=== PATIENT | male | born 1980 | race Hispanic/Latino ===

== ENCOUNTER 2016-07-22 10:37 | Emergency (ER) | payer BC ==
[2016-07-22 10:43] VITALS: BP 128/80; PULSE 67; RESP 20; TEMP 97.8; O2SAT 97
--- NOTE | 2016-07-22 10:46 | ED PDOC ---
HPI: Back Time Seen by Provider: 07/22/16 10:46 Chief Complaint (Provider): back pain History Per: Patient Additional Complaint(s): Patient states he was playing with his daughter at home when he accidentally tripped injuring right side of lower back and back of his right thigh. He has had persistent muscle spasms to posterior right leg and right lower back since this occurred at 7:30 this morning. Patient took 3 Aleve but this did not relieve his pain. He is status post recent muscle injury to his right calf region sustained about 2 months ago which is currently healing. He contacted his orthopedist this morning who advised that he come to ED for treatment with a muscle relaxer. Patient denies any pain to right calf region since injury this morning. He is able to walk and bear weight but has pain to right posterior thigh and lower back when doing so. Denies any acute bowel or bladder dysfunction. Past Medical History Reviewed: Historical Data, Nursing Documentation, Vital Signs Vital Signs: Last Vital Signs Temp 97.8 F 07/22/16 10:42 Pulse 67 07/22/16 10:42 Resp 20 07/22/16 10:42 BP 128/80 07/22/16 10:42 Pulse Ox 97 07/22/16 10:42 - Medical History PMH: No Chronic Diseases - Surgical History Surgical History: Hernia Repair (at age 4 ) - Family History Family History: States: No Known Family Hx - Living Arrangements Living Arrangements: With Family - Social History Current smoker - smoking cessation education provided: No Alcohol: None Drugs: Denies - Home Medications Home Medications: Ambulatory Orders Medication Instructions Recorded Cyclobenzaprine [Cyclobenzaprine 10 mg PO TID PRN #15 tab 07/22/16 HCl] oxyCODONE/Acetaminophen [Percocet 1 ea PO Q6H PRN #8 tab 07/22/16 5/325 mg Tab] - Allergies Allergies/Adverse Reactions: Allergies Allergy/AdvReac Type Severity Reaction Status Date / Time No Known Allergies Allergy Verified 07/22/16 10:54 Review of Systems ROS Statement: Except As Marked, All Systems Reviewed And Found Negative Musculoskeletal: Positive for: Back Pain, Leg Pain Physical Exam - Reviewed Nursing Documentation Reviewed: Yes Vital Signs Reviewed: Yes - Physical Exam Appears: Positive for: Well, Non-toxic, No Acute Distress Skin: Negative for: Rash Cardiovascular/Chest: Positive for: Regular Rate, Rhythm Respiratory: Positive for: Normal Breath Sounds Back: Positive for: Vertebral Tenderness (Mild tenderness right lower lumbar region with palpable muscle spasm) Extremity: Positive for: Normal ROM, Other (Palpable muscle spasm and tenderness posterior right thigh, Full range of motion of right hip, right knee and right ankle, nontender right calf, normal distal sensation right lower extremity). Negative for: Pedal Edema Neurologic/Psych: Positive for: Alert, Oriented - ECG O2 Sat by Pulse Oximetry: 97 Pulse Ox Interpretation: Normal Medical Decision Making Medical Decision Making: Impression: right low back and right leg muscle spasm Plan: IM valium PO tramadol Patient feels much better after medications administered in ED. Prescriptions given for Percocet and Flexeril to go home. Patient was advised to rest affected area and was instructed to follow up with orthopedist for any persistent symptoms. Disposition - Clinical Impression Clinical Impression: Back strain, Leg strain - Patient ED Disposition Is Patient to be Admitted: No Counseled Patient/Family Regarding: Diagnosis, Need For Followup, Rx Given - Disposition Referrals: Kofi Phelan MD [Staff Provider] - Disposition: Routine/Home Disposition Time: 12:20 Condition: IMPROVED Additional Instructions: Rest affected area as much as possible. Take prescription medications as directed as needed for pain. Continue with [id number] Aleve or ibuprofen for anti-inflammatory effect. Follow-up with orthopedist in 2-3 days or return any time if acutely worse. Prescriptions: Cyclobenzaprine [Cyclobenzaprine HCl] 10 mg PO TID PRN #15 tab PRN Reason: Muscle Pain oxyCODONE/Acetaminophen [Percocet 5/325 mg Tab] 1 ea PO Q6H PRN #8 tab PRN Reason: Pain, Severe (8-10) Instructions: Muscle Spasm (ED), Back Pain (ED)
[2016-07-22] MEDS ORDERED: diaZEpam 10 mg/2 ml Inj IM STA (11:12)
[2016-07-22] MEDS ORDERED: diaZEpam 10 mg/2 ml Inj ONE (11:44)
== END 2016-07-22 12:39 | disposition home or self-care (01) ==
LOC: H.ER 10:37
DX: S39.012A Strain of muscle, fascia and tendon of lower back, initial encounter (principal); S76.911A Strain of unspecified muscles, fascia and tendons at thigh level, right thigh, initial encounter; W19.XXXA Unspecified fall, initial encounter
CPT/HCPCS: 96372; 99283; J3360

== ENCOUNTER 2016-07-26 11:17 | Emergency (ER) | payer BC ==
[2016-07-26 11:32] VITALS: BP 147/92; PULSE 98; RESP 18; TEMP 97; O2SAT 97
--- NOTE | 2016-07-26 11:57 | ED PDOC ---
HPI: General Adult Time Seen by Provider: 07/26/16 11:55 Chief Complaint (Nursing): Med Refill Chief Complaint (Provider): back strain History Per: Patient (36 y/o male h/o healing right leg since 04/2017 here for back strain. Patient states he has had acute right leg pain radiating to back on Thursday while playing with daughter. Was seen in ED and given medication for muscular spasm and rx for pain medication/muscle relaxant. Patient states he is going on trip to [facility] Thursday and requests rx for pain medications for back pain.) Past Medical History Reviewed: Historical Data, Nursing Documentation, Vital Signs Vital Signs: Last Vital Signs Temp 97 F L 07/26/16 11:26 Pulse 98 H 07/26/16 11:26 Resp 18 07/26/16 11:26 BP 147/92 H 07/26/16 11:26 Pulse Ox 97 07/26/16 11:58 - Surgical History Surgical History: Hernia Repair (at age 4 ) - Family History Family History: States: No Known Family Hx - Home Medications Home Medications: Ambulatory Orders Medication Instructions Recorded Cyclobenzaprine [Cyclobenzaprine 10 mg PO TID PRN #15 tab 07/22/16 HCl] oxyCODONE/Acetaminophen [Percocet 1 ea PO Q6H PRN #8 tab 07/22/16 5/325 mg Tab] Naproxen [Naprosyn Tab] 1 tab PO Q8 PRN #21 tab 07/26/16 oxyCODONE/Acetaminophen [Percocet 1 ea PO Q6 PRN #8 tab 07/26/16 5/325 mg Tab] - Allergies Allergies/Adverse Reactions: Allergies Allergy/AdvReac Type Severity Reaction Status Date / Time No Known Allergies Allergy Verified 07/22/16 10:54 Review of Systems ROS Statement: Except As Marked, All Systems Reviewed And Found Negative Musculoskeletal: Positive for: Back Pain Physical Exam - Reviewed Nursing Documentation Reviewed: Yes Vital Signs Reviewed: Yes - Physical Exam Appears: Positive for: Well, Non-toxic, No Acute Distress Head Exam: Positive for: ATRAUMATIC, NORMAL INSPECTION, NORMOCEPHALIC Skin: Positive for: Normal Color, Warm, DRY Eye Exam: Positive for: EOMI, Normal appearance, PERRL ENT: Positive for: Normal ENT Inspection Neck: Positive for: Normal, Painless ROM Cardiovascular/Chest: Positive for: Regular Rate, Rhythm Respiratory: Positive for: CNT, Normal Breath Sounds Gastrointestinal/Abdominal: Positive for: Normal Exam, Bowel Sounds, Soft Back: Positive for: Normal Inspection Extremity: Positive for: Normal ROM, Other (Right leg in boot.) Neurologic/Psych: Positive for: Alert, Oriented - ECG O2 Sat by Pulse Oximetry: 97 - Progress ED Course And Treament: d/w Dr. Felton Arora 12:30pm. Will write short course percocet/naproxen for leg rx. Patient to continue with boot outdoors. naproxen 500 mg x 1 dose Disposition - Clinical Impression Clinical Impression: Back strain, Fracture tibia/fibula - Patient ED Disposition Is Patient to be Admitted: No - Disposition Disposition: Routine/Home Disposition Time: 12:33 Condition: FAIR Prescriptions: Naproxen [Naprosyn Tab] 1 tab PO Q8 PRN #21 tab PRN Reason: Pain, Severe (8-10) oxyCODONE/Acetaminophen [Percocet 5/325 mg Tab] 1 ea PO Q6 PRN #8 tab PRN Reason: Pain, Severe (8-10) Instructions: Back Pain (ED)
[2016-07-26] MEDS ORDERED: Naproxen 500 MG TAB PO ONE (12:02)
[2016-07-26] MEDS ORDERED: Naproxen 500 MG TAB PO STA (12:04)
== END 2016-07-26 12:47 | disposition home or self-care (01) ==
LOC: H.ER 11:17
DX: M54.9 Dorsalgia, unspecified (principal); M79.604 Pain in right leg